=== PATIENT | male | born 1985 | race African-American/Black ===

== ENCOUNTER 2022-06-14 09:13 | Emergency (ER) | payer OTHER ==
[~2022-06-14] VITALS: Ht 170.2 cm; Wt 97.0 kg
[2022-06-14] MEDS ORDERED: KETOROLAC 60MG/2ML VIAL IM STA (10:27)
[2022-06-14] MEDS: KETOROLAC 60MG/2ML VIAL IM NR ×6 (14:24→15:51)
[2022-06-14 14:26] LABS: BASOPHILS % 0.6 % (0.0-2.0); EOSINOPHILS % 2.4 % (0.0-5.0); HEMATOCRIT. 43.3 % (42.0-52.0); HEMOGLOBIN. 14.4 g/dL (14.0-18.0); LYMPHOCYTES % 13.8 % (20.0-50.0); MEAN CORPUSCULAR HEMOGLOBIN 32.2 pg (28.0-32.0); MEAN CORPUSCULAR VOLUME 96.7 fL (80.0-94.0); MEAN PLATELET VOLUME 8.9 fl (7.4-10.4); MONOCYTES % 11.2 % (2.0-8.0); PLATELET 252 x1000/uL (130-400); RED BLOOD CELL COUNT 4.48 mill/uL (4.7-6.1); RED CELL DISTRIBUTION WIDTH 12.9 % (11.6-14.6)
[2022-06-14 14:38] LABS: CHLORIDE 105 mEq/L (98-107)
[2022-06-14] MEDS ORDERED: METHYLPREDNISOLONE SOD SUCC 125 MG/2 ML VIAL IM STA (14:59)
[2022-06-14] MEDS ORDERED: NAPR-681 PO (15:05)
[2022-06-14 15:51] VITALS: BP 183/93
== END 2022-06-14 16:07 | disposition home or self-care (01) ==
LOC: ER 09:13
DX: M10.9 Gout, unspecified (principal); M79.672 Pain in left foot
CPT/HCPCS: 36415; 73630; 80053; 84550; 85025; 85651; 96372; 99284; J1885; J2930; Z7610